=== PATIENT | female | born 1940 | race Caucasian/White ===

== ENCOUNTER → 2020-11-05 | Outpatient (CLI) | payer OTHER ==
[~2020-11-05] VITALS: Ht 160 cm; Wt 90.3 kg
[~2020-11-05] MED LIST: BIOTIN10 MG PO; CLARITIN10 M3 PO; COQ1050 MG PO; DORZOLAMIDE 2%10 ML OPHTHALMIC; JANUVIA 50 MG T50 M1 PO; LEVO-T50 MCG PO; LIPITOR 40 MG T40 M1 PO; LOSARTAN-HCTZ1 EAC3 PO; NEURONTIN 300M300 M2 PO; NEURONTIN300 MG PO; TRAMADOL 50 MG50 MG PO; VITAMIN D-40010 MCG PO; VITAMIN D250 MC1 PO; XALATAN2.5 ML OPHTHALMIC
--- NOTE | ~2020-11-05 | HPC ---
[facility] [place] [address] PAIN MANAGEMENT CONSULTATION Name: BHUMI BARRERA Room #: REG MARIANELA MaradiagaMaryRusselMary#: [id number] Admission: 11/05/20 Attend Phys: Momo Bhatia DO Discharge: Date of : 39 Report #: [id number] THIS REPORT FOR: cc: ROXANA - Family physician unknown FAM - Family physician unknown Momo Bhatia DO ~ DOC #: [id number] cc: Blaire Bhatia DO DATE OF SERVICE: 11/05/2020 DATE OF SERVICE: 11/05/2020 REFERRING PHYSICIAN: Dr. Blaire Nguyen. CHIEF COMPLAINT: Left forearm and hand paresthesias. HISTORY OF PRESENT ILLNESS: As you know, the patient is a pleasant 80-year-old female who reports longstanding history of left forearm and hand pain. Pain has been present prior to her cervical surgeries, the first cervical surgery 2 years ago, the second 1 year ago. She has been experiencing symptoms since 2019. She underwent a surgery with Dr. Alexander Leach at [facility]. She is unaware of the specific surgeries that she had and to what levels were addressed. She states this problem preceded the surgeries and were unresolved with two different surgeries. 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 She was trialled on conservative treatment utilizing Lyrica, but this caused side effects and had to be discontinued. She is currently on an extremely low dose of gabapentin with no benefit. She has trialled conservative treatment, failing each of those conservative treatment. She was sent to our clinic for evaluation. She indicates no specific injury or trauma that led to symptom development. The patient reports today her pain is continuous and constant. She describes the pain as burning, shooting, pulling, gnawing, throbbing, stabbing, numbness and tingling, but his current pain score 6/10. Daily average at 8/10. Worst pain has been 10/10. She states the pain is exacerbated with "I don't know." Pain is improved with mildly with gabapentin, rest and relaxation. The patient has undergone carpal tunnel syndrome treatment in July of 2020 without improvement in her symptoms. She has been referred to our service to discuss treatment options for suspected cervical radiculopathy. She has no imaging available of the cervical spine. We did receive imaging of the thoracic spine, which would not contribute to evaluation of the cervical area. PAST MEDICAL HISTORY: 1. Diabetes mellitus type 2. [address] [address] PAIN MANAGEMENT CONSULTATION Name: BHUMI BARRERA Room #: REG [facility]#: [id number] Admission: 11/05/20 Attend Phys: Momo Bhatia DO Discharge: Date of : 39 Report #: [id number] 2. Hypertension. 3. Hypothyroidism. 4. Degenerative joint disease. 5. Osteoarthritis. 6. Dyslipidemia. PAST SURGICAL HISTORY: 1. Cervical surgery x2. 2. Carpal tunnel release on the left, 08/10/2020. SOCIAL HISTORY: The patient denies tobacco use. Denies IV or illicit drug use. Denies any chronic alcohol use. She is retired, retired years ago. She is unaccompanied at today's visit. REVIEW OF SYSTEMS: Positive for wearing corrective eyewear, cataracts, hearing loss with tinnitus, shortness of breath with walking, lying flat, lightheadedness, numbness and tingling sensations in the left upper extremity and thyroid disease, heat and cold intolerance. All other review of systems negative per 12-point review of systems other than those listed in history of present illness. Pain impact score 37/70 moderate interference of daily activities secondary to pain. ALLERGIES: OXYCODONE. CURRENT MEDICATIONS: Atorvastatin 40 mg once a day, Biotin 10 mg once a day, Claritin 10 mg once a day, multivitamin 1 tab per day, Januvia 50 mg per day, gabapentin 300 mg 3 times a day, dorzolamide 1 drop each eye per day, latanoprost one drop each eye per day. IMAGING: There is no imaging of the area of concern, MRI of the thoracic spine from 2019 is present, but noncontributory. PQRS: The patient has known arthritic changes of the lumbar spine, bilateral hips and knees. No rheumatoid arthritis. She is placing current pain intensity at 6/10. She is not a fall risk, has not had a fall in last 3 months. She is not on blood thinners, but is treated for hypertension. She is taking no chronic opioids, has a low opioid addiction potential. Pain impact is 37-70 moderate interference of daily activities secondary to pain. PHYSICAL EXAMINATION: VITAL SIGNS: Blood pressure 163/92, pulse 105, respiratory rate 20, unlabored. The patient is 98% on room air. Height 5 feet 3 inches tall, weight 199 pounds, BMI calculated 35.3. GENERAL: Well-developed, well-nourished, well-hydrated 80-year-old female [address] [address] PAIN MANAGEMENT CONSULTATION Name: BHUMI BARRERA Room #: REG MARIANELA Modi#: [id number] Admission: 11/05/20 Attend Phys: Momo Bhatia DO Discharge: Date of : 39 Report #: [id number] appearing stated age, placing current pain score at 6/10. HEENT: Normocephalic, atraumatic. Pupils equal, round and responsive to light. She is wearing a mask in compliance with COVID-19 regulations. LUNGS: Appear clear. No wheeze or rhonchi. No rales. CARDIOVASCULAR: Regular. No appreciable gallop. No rub. ABDOMEN: Soft, obese, normoactive bowel sounds. EXTREMITIES: Show no clubbing, no cyanosis. No appreciable edema. MUSCULOSKELETAL: Upper extremity strength is symmetrical 5/5 except with director of head start strength on the left, which is weakened over the thumb, first and second digit. There is well-healed surgical scar from a carpal tunnel release on the left. There is noted thenar eminence atrophy as well as the intrinsic muscles of the thumb. Tinel sign negative. Phalen sign negative. There is allodynia with touch over the area of the distribution of the C5-C6 dermatome on the left and this is from the forearm down. Cervical provocation testing is met with increasing neck pain, no radiation of symptoms. Spurling's test is equivocal on the left, negative right. There is pain elicited with movement of the cervical region. ASSESSMENT: 1. Chronic cervical radiculopathy. 2. Peripheral nerve injury. 3. Peripheral neuropathy. 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 PLAN: Based on today's physical exam, the history, the patient has provided, the description the patient uses in regards to pain as well as location of symptoms, it would appear she is suffering from chronic cervical radicular symptoms. Based on the patient's report the symptoms she is experiencing predated the surgeries performed by Dr. Alexander Leach at [facility]. She reported no improvement in symptoms. She has not followed up with the neurosurgery team since her second surgery. She and I discussed today that we would need cervical MRI and EMG of the left upper extremity to be able to further evaluate and determine a treatment course. We can certainly provide some adjustments in her medication today to help with pain, but this would not at all affect the source of the symptoms the patient is experiencing some pain from. I do feel that further evaluation with cervical MRI would be appropriate along with an EMG if the cervical MRI does not provide definitive evidence of nerve root impingement on the left. The fact that these symptoms predated her 2 different cervical surgeries may indicate that there has been an irreversible nerve damage and that treatment would require adjustments in neuropathic medications. We discussed this with the patient today. We also discussed the treatment options for cervical radiculopathy. The following was discussed with the patient. We discussed physical therapy, stretching exercises and traction techniques as a treatment course. We discussed adjustments in [place] [address] PAIN MANAGEMENT CONSULTATION Name: BHUMI BARRERA Room #: REG MARIANELA Modi#: [id number] Admission: 11/05/20 Attend Phys: Momo Bhatia DO Discharge: Date of : 39 Report #: [id number] help with pain control. She is taking an extremely low dose of gabapentin, which has minimal effect on the symptoms she is experiencing. This could be rapidly escalated or additional medications could be added including amitriptyline, nortriptyline, possible addition of Cymbalta in conjunction with the gabapentin. We discussed cervical epidural injection under fluoroscopic guidance though given the fact the patient has had two surgeries, neither of which provided improvement in her preexisting left upper extremity symptoms likelihood of an epidural injection providing much benefit is minimal. We discussed ultimately surgical decompression of the cervical nerve roots if necessary to address symptoms. After reviewing risks and benefits of all proposed treatment options, the patient chose to follow up with the PCP in regards to imaging and a more definitive testing and to make adjustments in medication management. The patient will increase her gabapentin as directed. We have given the patient a written form of a titration to begin immediately. She will start increasing her gabapentin today. We will start the patient at 300 mg morning, 300 mg at noon and 600 mg at night for 5 nights, then increase to 300 mg morning, 300 mg noon and 900 mg at night for 5 nights. If no improvement in symptoms, no side effects, then continue increasing by 300 mg every 5 days until reaching 900 mg t.i.d. The patient was advised anytime during the titration of medication. She notes improvement in symptoms stabilize at that dose, no further escalation. If the patient begins to experience side effects of sleepiness, disorientation, confusion, mental slowing, she can contact our clinic after reducing the dose prior to the side effects occurrence. The patient was given a prescription for gabapentin 300 mg 2 at current 600 mg dose that she had just received and titrate as directed. She was given titration in written form to follow. We have recommended the patient discuss with the PCP further imaging. We would request a cervical MRI without contrast as initial evaluation. We would also request a possible EMG of the left upper extremity if the MRI shows no definitive nerve root impingement. This will help further direct her care, whether or not she needs to follow up with neurosurgery or no surgical options are recommended. We will defer to the primary team for the imaging and EMG studies as necessary. We will see the patient back in followup visit once she has completed imaging of the cervical spine and whether or not she undergoes EMG. We will review those findings with the patient, discussed the options for treatment based on those findings. She will follow up with us once those have been completed so that we can give the patient further definitive direction treatment. She will continue medications as directed. We wish to thank Dr. Blaire Nguyen for the opportunity to see the patient in consultation. We will keep you apprised of response to treatment with the specific adjustments in medication management provided today. Again, we wish to [address] [address] PAIN MANAGEMENT CONSULTATION Name: CORA BARRERAHIE Room #: REG CL Dorothy.#: [id number] Admission: 11/05/20 Attend Phys: Momo Bhatia DO Discharge: Date of : 39 Report #: [id number] thank you for the opportunity to see the patient in consultation. Momo Bhatia DO JEJ/SANIYA By: [id number] Momo Bhatia DO /nt
[2020-11-05 10:02] VITALS: BP 163/92
--- NOTE | 2020-11-05 10:28 | NUR ---
Pain Clinic Assessment: 1. History of Osteoarthritis: Left Lower Extremity History of Rheumatoid Arthritis: Not Applicable 2. Height: 5 ft. 3 in. 160.0 cm. Weight: 199.0 lb. oz. 90.266 kg. Patient's BMI: 35.3 3. Vital Signs: BP: 163/92 Pulse: 105 Resp: 20 Temp: 02 Sat: 98 ECG Mon: 4. Pain Intensity: 6 5. Fall Risk: Dizziness: Y Needs help standing or walking: N Fallen in the last 3 months: N Fall risk comments: 6. Patient on Blood Thinner: None 7. History of Hypertension: Y 8. Opioid Therapy greater than 6 weeks: N Opiate Contract Signed: 9. Risk Assessment Tool Provided: O LOW RISK 10. Functional Assessment Tool: 11. Recreational Drug Use: Never Drug Type: Tobacco Use: Former Smoker Tobacco Type: Amount or Packs/day: How Many Years: Alcohol Use: No Frequency: Quant:
== END ==
LOC: PAIN 06:57
PROVIDERS: ATTEND Anesthesiology Pain Medicine
DX: M54.12 Radiculopathy, cervical region (principal); G62.9 Polyneuropathy, unspecified; E11.9 Type 2 diabetes mellitus without complications; I10 Essential (primary) hypertension; E03.9 Hypothyroidism, unspecified; M19.90 Unspecified osteoarthritis, unspecified site; E78.5 Hyperlipidemia, unspecified; Z79.891 Long term (current) use of opiate analgesic; Z79.899 Other long term (current) drug therapy

== ENCOUNTER → 2020-12-17 | Outpatient (CLI) | payer OTHER ==
[~2020-12-17] VITALS: Ht 157.5 cm; Wt 92.4 kg
[2020-12-17 13:27] VITALS: BP 145/69
--- NOTE | 2020-12-17 13:41 | NUR ---
Pain Clinic Assessment: 1. History of Osteoarthritis: Left Lower Extremity History of Rheumatoid Arthritis: Not Applicable 2. Height: 5 ft. 2 in. 157.5 cm. Weight: 203.6 lb. oz. 92.352 kg. Patient's BMI: 37.2 3. Vital Signs: BP: 145/69 Pulse: 94 Resp: 18 Temp: 02 Sat: 97 ECG Mon: 4. Pain Intensity: 5 5. Fall Risk: Dizziness: N Needs help standing or walking: N Fallen in the last 3 months: N Fall risk comments: 6. Patient on Blood Thinner: None 7. History of Hypertension: Y 8. Opioid Therapy greater than 6 weeks: N Opiate Contract Signed: 9. Risk Assessment Tool Provided: O LOW RISK 10. Functional Assessment Tool: 11. Recreational Drug Use: Never Drug Type: Tobacco Use: Former Smoker Tobacco Type: Amount or Packs/day: How Many Years: Alcohol Use: No Frequency: Quant:
--- NOTE | 2020-12-18 08:37 | HPC ---
[facility] [place] [address] PAIN MANAGEMENT CONSULTATION Name: BHUMI BARRERA Room #: REG MARIANELA De La CruzMary#: [id number] Admission: 12/17/20 Attend Phys: Momo Bhatia DO Discharge: Date of : 39 Report #: [id number] THIS REPORT FOR: cc: FAM - Family physician unknown FAM - No family physician/PCP Momo Bhatia DO ~ cc: Blaire Nguyen DATE OF SERVICE: 12/17/2020 REFERRING PHYSICIAN: Dr. Blaire Nguyen. CHIEF COMPLAINT: Left upper extremity pain. HISTORY OF PRESENT ILLNESS: As you know, the patient is an 80-year-old female with longstanding history of left upper extremity pain, forearm pain, and hand pain. She has been seen for and submitted to cervical surgeries 2 years ago and 1 year ago. She began experiencing those symptoms in 2019. She had surgeries performed by Dr. Alexander Leach at [facility]. She was referred to our clinic by Dr. Nguyen to be seen for chronic cervical radiculopathy. It was noted no imaging had been obtained. We discussed in generalities the treatment options for the patient, but needed further imaging. The patient returns today with a new MRI of the cervical spine to review. She is placing her current pain score at 5/10. She returns to discuss the findings of that MRI and to discuss treatment options. ALLERGIES: OXYCODONE. CURRENT MEDICATIONS: Atorvastatin, biotin, Claritin, multivitamin, Januvia, gabapentin, dorzolamide, Latanoprost. SOCIAL HISTORY: The patient denies tobacco use. Denies IV or illicit drug use. Denies any chronic alcohol use. She is retired, retired years ago, unaccompanied today. IMAGING: MRI of cervical spine obtained 12/07/2020 shows C1-C2 with mild thickening of the transverse ligament. C2-C3 shows endplate spurring without central canal stenosis, mild to moderate left neural foraminal stenosis. L3-L4 shows anterior fusion, endplate spurring, greatest on the right causing cord compression. There is moderate left and mild right neural foraminal stenosis. C4-C5 shows anterior fusion with endplate spurring causing spinal cord compression, marked right greater than left neural foraminal stenosis, C5-C6 shows anterior fusion effacing the subarachnoid space with definite cord compression, marked bilateral neural foraminal stenosis. C6-C7 shows moderate disk bulge effacing the subarachnoid space. No spinal cord compression. Marked left and moderate right neural foraminal stenosis. C7-T1 shows endplate degeneration and spurring without cord compression. Moderate right and mild [address] [address] PAIN MANAGEMENT CONSULTATION Name: BHUMI BARRERA Room #: REG MARIANELA Modi#: [id number] Admission: 12/17/20 Attend Phys: Momo Bhatia DO Discharge: Date of : 39 Report #: [id number] left neural foraminal stenosis. PQRS: The patient has known arthritic changes of lumbar spine, bilateral hips, cervical spine and knees. No rheumatoid arthritis. She is placing pain intensity today at a 5/10. She is not a fall risk, has not had a fall in last 3 months. She is not on blood thinners, but is treated for hypertension. She is not on any opioids, has a low opioid addiction potential based on assessment tool. Pain impact 37/70, moderate interference of daily activities secondary to pain. PHYSICAL EXAMINATION: VITAL SIGNS: Blood pressure 145/69, pulse is 94, respiratory rate is 18 and unlabored. The patient 97% on room air. Height 5 feet 2 inches tall, weight 203.6 pounds, BMI calculated 37.2. GENERAL: Well-developed, well-nourished, well-hydrated 80-year-old female appearing stated age, placing pain today at 5/10. HEENT: normocephalic, atraumatic. Pupils equal, round and responsive. She is wearing a mask in compliance with COVID-19 regulations. EXTREMITIES: Show no clubbing, no cyanosis, no edema. MUSCULOSKELETAL: Upper extremity strength once again is symmetrical 5/5 except with principal java developer strength on the left, which is weakened over the thumb, first and second digits. There is well-healed surgical scar from a carpal tunnel release on the left. There is noted thenar eminence atrophy as well as intrauterine intrinsic muscles of the thumb and the first finger. Tinel sign is negative. Phalen sign negative. There is allodynia to light touch over the distribution of C5-C6 dermatome on the left, negative on the right. Spurling's test remains equivocal. ASSESSMENT: 1. Cervical radiculopathy. 2. Marked neural foraminal stenosis of the cervical spine. 3. Central canal stenosis of the cervical spine. 4. Myelomalacia of the cervical spinal cord. 5. Peripheral neuropathy. 6. Atrophy of the left thenar eminence. PLAN: The patient returns today in followup visit where we have reviewed over a 30-minute timeframe the recent MRI of the cervical spine. This does show anterior fusion changes at C3-C4 through C6 with central canal stenosis. There is spinal cord atrophy and myelomalacia at C4-C5. There is noted also marked neural foraminal stenosis at the C5-C6 and C6-C7 levels, which does correlate with the patient's current symptoms. After the review of this imaging study, we discussed the potential treatment options, following was discussed with the patient today: 1. We discussed physical therapy, stretching exercises and traction techniques to help with cervical radicular symptoms. We discussed adjustments in [facility] [address] [place] [address] PAIN MANAGEMENT CONSULTATION Name: BHUMI BARRERA Room #: REG MARIANELA Modi#: [id number] Admission: 12/17/20 Attend Phys: Momo Bhatia DO Discharge: Date of : 39 Report #: [id number] medication management. Currently, she is taking gabapentin, started by our services at 300 mg morning, 300 mg noon and 600 mg at night. She has noted no side effects and has noted some benefit. We discussed escalating that dose further. We also discussed cervical epidural injections, which could provide some transient improvement in symptoms. We also discussed ultimately surgical decompression of the neural foramen reducing the compression on the nerve roots, which would likely improve her symptoms. After reviewing the risks and benefits of all proposed treatment options, the patient chose to look towards surgical options. 2. The patient and I discussed that we would recommend she continue to increase her gabapentin as indicated above, she is taking 300 mg morning, 300 mg noon and 600 mg at night. We recommend increasing tonight to 300 mg morning, 300 mg at noon and 900 mg at night for 3 days; then increase to 600 mg in the morning, 300 mg noon and 900 mg at night for 3 days; continuing the titration to reach 900 mg morning, 900 mg noon and 900 mg at night as a goal dose. At any time during this titration, she notes improvement in symptoms without side effects, stabilize at that dose, no further escalation. No improvement in symptoms, no side effects, continue the titration as directed. I did advise the patient if she notes side effects, to reduce to the dose prior to the side effects and continue the medication after contacting our clinic. 3. The patient has requested to discuss with her PCP a referral to neurosurgeon to discuss treatment for her cervical radiculopathy. The patient was seen by Dr. Leach in the past, but apparently he has retired. The patient is interested to look at Neurosurgery, possibly [facility] or [facility]. We will defer to the primary team for those referrals to be provided. 4. We will see the patient back in followup visit if she wishes to look towards interventional treatment options. We are hopeful that the adjustment in medication management will provide some analgesic benefit as she seeks surgical consultation. We will be certainly willing to see her back to continue the gabapentin or to look towards cervical epidural injections. <ELECTRONICALLY SIGNED> By: Momo Bhatia DO 12/18/20 [id number] Momo Bhatia DO /nt
== END ==
LOC: PAIN 12:47
PROVIDERS: ATTEND Anesthesiology Pain Medicine
DX: M54.12 Radiculopathy, cervical region (principal); M48.02 Spinal stenosis, cervical region; G62.9 Polyneuropathy, unspecified; Z79.899 Other long term (current) drug therapy; Z79.891 Long term (current) use of opiate analgesic